=== PATIENT | male | born 1990 | race African-American/Black ===

== ENCOUNTER 2024-11-17 18:51 | Emergency (ER) | payer SELFPAY ==
[~2024-11-17] VITALS: Ht 172.7 cm; Wt 76.6 kg
[2024-11-17 18:56] VITALS: O2SAT 100
[2024-11-17 19:59] LABS: BASOPHILS % 0.8 % (0.0-2.0); EOSINOPHILS % 1.7 % (0.0-5.0); HEMATOCRIT. 40.6 % (42.0-52.0); HEMOGLOBIN. 13.9 g/dL (14.0-18.0); LYMPHOCYTES % 23.3 % (20.0-50.0); MEAN PLATELET VOLUME 8.1 fl (7.4-10.4); MONOCYTES % 6.2 % (2.0-8.0); NEUTROPHILS % 68.0 % (40.0-76.0); PLATELET 306 x1000/uL (130-400); RED BLOOD CELL COUNT 4.63 mill/uL (4.7-6.1); RED CELL DISTRIBUTION WIDTH 12.9 % (11.6-14.6)
[2024-11-17 20:10] LABS: INR 1.0
[2024-11-17 20:16] LABS: CREATININE 1.1 mg/dL (0.6-1.3); ETHANOL BLOOD < 10 mg/dL (<10); UREA NITROGEN BLOOD 11 mg/dL (9-23)
[2024-11-17 20:18] LABS: ASPARTATE AMINOTRANSFERASE 23 IU/L (<34); BILIRUBIN DIRECT 0.2 mg/dL (<=3.0); BILIRUBIN TOTAL 0.6 mg/dL (0.1-1.0); PROTEIN TOTAL 6.6 g/dL (6.0-8.3)
[2024-11-17] MEDS: ASPIRIN 81MG TABLET PO ONE (20:22)
[2024-11-17] MEDS: HYDRALAZINE 20MG/ML VIAL IV ONE (20:22)
[2024-11-17 20:36] LABS: TROPONIN I HIGH SENSITIVITY 175 ng/L (3.0-53)
[2024-11-17 20:45] LABS: CLARITY URINE CLEAR (CLEAR); COLOR URINE YELLOW (YELLOW); GLUCOSE URINE NEGATIVE (NEGATIVE); KETONES URINE NEGATIVE (NEGATIVE); LEUKOCYTE ESTERASE URINE NEGATIVE (NEGATIVE); NITRITE URINE NEGATIVE (NEGATIVE); OCCULT BLOOD URINE NEGATIVE (NEGATIVE); PH URINE 6.5 (4.5-8.0); PROTEIN URINE NEGATIVE (NEGATIVE); SPECIFIC GRAVITY URINE 1.031 (1.005-1.030); UROBILINOGEN URINE 1.0 E.U./dL (0.2-1.0)
[2024-11-17 20:50] LABS: *AMPHETAMINES SCREEN URINE NEGATIVE (NEGATIVE); *BARBITURATES SCREEN URINE NEGATIVE (NEGATIVE); *BENZODIAZEPINES SCREEN URINE NEGATIVE (NEGATIVE); *COCAINE SCREEN URINE NEGATIVE (NEGATIVE); CANNABINOID URINE SCREEN NEGATIVE (NEGATIVE); ECSTASY MDMA SCREEN URINE NEGATIVE (NEGATIVE); METHADONE URINE SCREEN NEGATIVE (NEGATIVE); OPIATES URINE SCREEN NEGATIVE (NEGATIVE); PHENCYCLIDINE URINE SCREEN NEGATIVE (NEGATIVE)
[2024-11-17 22:30] VITALS: BP 165/117; PULSE 108; RESP 28; TEMP 36.9; O2SAT 99
[2024-11-17] MEDS ORDERED: IOHEXOL-350 100 ML BOTTLE ONE (23:37)
== END 2024-11-17 22:33 | disposition left against medical advice (07) ==
LOC: ER 18:51 → EDBEDREQ 21:19 → ENRESERV 21:49 → ER 22:33
DX: G45.9 Transient cerebral ischemic attack, unspecified (principal); I16.1 Hypertensive emergency; I21.4 Non-ST elevation (NSTEMI) myocardial infarction; Z79.02 Long term (current) use of antithrombotics/antiplatelets; Z79.899 Other long term (current) drug therapy; Z55.6 Problems related to health literacy
CPT/HCPCS: 80076; 80305; 80048; 81003; 80320; 82550; 82962; 85025; 85610; 86850; 86900; 86901; 84484; 36415; 71045; 70496; 70498; 70450; 96374; 93005; 99291; Q9967; Z7610 ×3; J0360; G0480